=== PATIENT | male | born 1990 | race Caucasian/White ===

== ENCOUNTER 2018-06-21 19:15 | Emergency (ER) | payer SELFPAY, OTHER | END 2018-06-21 20:33 | disposition home or self-care (01) | LOC: ER 19:15 ==

== ENCOUNTER 2018-06-23 22:30 | Emergency (ER) | payer SELFPAY ==
[~2018-06-23] VITALS: Ht 182.9 cm; Wt 68.0 kg
[~2018-06-23 22:30] MED LIST: MPR22T TP; SULF1TAB38 PO
[2018-06-23 23:07] VITALS: BP 138/67
--- NOTE | 2018-06-24 09:09 | ED General ---
General Chief Complaint: -Male Stated Complaint: WANTS TO BE CHECKED FOR STDS Nursing Triage Note: pt presents to ed requesting STD testing. reports his girl friend tested positive for chlamydia. pt denies any s/s Nursing Sepsis Screen: No Definite Risk Source of Information: Patient History of Present Illness Date Seen by Provider: Jun 24, 2018 Time Seen by Provider: 00:20 Initial Comments PT ARRIVES VIA POV PT STATES "I THINK I HAVE CHLAMYDIA" PT STATES HIS GIRLFRIEND JUST CALLED HIM FROM THE REHAB FACILITY THAT SHE IS CURRENTLY IN, AND TOLD HIM THAT SHE HAD CHLAMYDIA, SO PT CAME STRAIGHT HERE PT HAS NO COMPLAINTS OF ANY KIND. NO DYSURIA, NO DISCHARGE FROM PENIS, NO GENITAL PAIN, NO FEVER. NO RASH PT DENIES ANY HISTORY OF STD'S AFTER DISCUSSION WITH PT, HE NOW DECLINES ANY TESTING HERE, AND OPTS TO FOLLOW UP WITH [facility] OR [facility] FOR TESTING AND TREATMENT, IF NECESSARY. PT LEFT, WITHOUT INSTRUCTIONS. PCP:[facility] Allergies and Home Medications Allergies Coded Allergies: No Known Drug Allergies (Unverified , 01/11/13) Home Medications No Active Prescriptions or Reported Meds Patient Home Medication List Home Medication List Reviewed: Yes Review of Systems Review of Systems Constitutional: no symptoms reported EENTM: no symptoms reported; No throat pain Respiratory: no symptoms reported Cardiovascular: no symptoms reported Gastrointestinal: no symptoms reported; No abdominal pain, No nausea, No vomiting Genitourinary: no symptoms reported Musculoskeletal: no symptoms reported; No joint pain, No muscle pain Skin: no symptoms reported; No rash Psychiatric/Neurological: No Symptoms Reported Hematologic/Lymphatic: No Symptoms Reported Immunological/Allergic: no symptoms reported Past Ouottyc-Qctdtd-Hvqijl Hx Patient Social History Alcohol Use: Occasionally Uses Recreational Drug Use: Yes (THC) Drug of Choice: THC Smoking Status: Former Smoker Former Smoker, Quit: Jun 02, 2018 Recent Foreign Travel: No Contact w/Someone Who Travel: No Recent Infectious Disease Expo: No Recent Hopitalizations: No Immunizations Up To Date Tetanus Booster (TDap): Unknown Past Medical History Surgeries: Yes (HERNIA REPAIR) Abdominal Respiratory: No Cardiac: No Neurological: No Genitourinary: No Gastrointestinal: No Musculoskeletal: No Endocrine: No HEENT: No Cancer: No Psychosocial: No Integumentary: No Blood Disorders: No Physical Exam Vital Signs Vital Signs - First Documented 06/23/18 23:07 Temp 98.0 Pulse 77 Resp 20 B/P (MAP) 138/67 (90) Pulse Ox 98 Capillary Refill : Less Than 3 Seconds Height, Weight, BMI Height: 6'1.00" Weight: 150lbs. 4.8oz. [id number]; 20.8 BMI Method:Stated General Appearance: No Apparent Distress, Thin Neurologic/Psychiatric: Alert, Oriented x3 Skin: Normal Color Progress/Results/Core Measures Suspected Sepsis Recent Fever Within 48 Hours: No Infection Criteria Present: None New/Unexplained Altered Menta: No Sepsis Screen: No Definite Risk SIRS Temperature:98.0 Pulse: 77 Respiratory Rate: 20 Blood Pressure 138 /67 Mean: 90 Results/Orders Vital Signs/I&O 06/23/18 23:07 Temp 98.0 Pulse 77 Resp 20 B/P (MAP) 138/67 (90) Pulse Ox 98 Capillary Refill : Less Than 3 Seconds Blood Pressure Mean: 90 Departure Impression Primary Impression: Exposure to STD Disposition: 07 AGAINST MEDICAL ADVICE Condition: Improved Departure-Patient Inst. Referrals: [facility] Patient Instructions: STD Prevention, Screening for Sexually Transmitted Infections Scripts No Active Prescriptions or Reported Meds MARISOL MORALES DO Jun 24, 2018 09:09
== END 2018-06-24 00:30 | disposition left against medical advice (07) ==
LOC: EDUNIT# 22:30 → ER 22:31
DX: Z20.2 Contact with and (suspected) exposure to infections with a predominantly sexual mode of transmission (principal); F12.10 Cannabis abuse, uncomplicated; Z87.891 Personal history of nicotine dependence; Z98.890 Other specified postprocedural states
CPT/HCPCS: 99283

== ENCOUNTER 2018-10-03 18:40 | Emergency (ER) | payer SELFPAY ==
[~2018-10-03] VITALS: Ht 185.4 cm; Wt 68.2 kg
--- NOTE | 2018-10-03 18:53 | ED Integumentary General ---
General Stated Complaint: KNOT ON STOMACH Source: patient Exam Limitations: no limitations History of Present Illness Date Seen by Provider: October 03, 2018 Time Seen by Provider: 18:40 Initial Comments Patient presents by private conveyance with chief complaint of knot on the front of his abdomen and his belt line. He does wear a belt. He says when he went to bed last night after work nothing was there but this morning and noticed a little red lump it's gotten larger and it hurts. He has no history of abscesses or folliculitis. No skin disorders or history of medical problems. He does not take any medications. He is not tried anything for it. He says it does not hurt bad enough that he wants anything for. Allergies and Home Medications Allergies Coded Allergies: No Known Drug Allergies (Unverified , 01/11/13) Home Medications No Active Prescriptions or Reported Meds Patient Home Medication List Home Medication List Reviewed: Yes Review of Systems Review of Systems Constitutional: chills; No fever, No malaise EENTM: No ear discharge, No hearing loss, No ear pain Respiratory: No cough, No short of breath Cardiovascular: No chest pain, No edema Gastrointestinal: No abdominal pain, No nausea, No vomiting Genitourinary: No discharge, No dysuria Past Rcasxjb-Qutwmf-Akvfhk Hx Patient Social History Alcohol Use: Occasionally Uses Recreational Drug Use: No Drug of Choice: THC Smoking Status: Current Someday Smoker Type Used: Cigarettes Former Smoker, Quit: Jun 02, 2018 Recent Foreign Travel: No Contact w/Someone Who Travel: No Recent Hopitalizations: No Immunizations Up To Date Tetanus Booster (TDap): Unknown Past Medical History Surgeries: Yes (HERNIA REPAIR) Abdominal Respiratory: No Cardiac: No Neurological: No Genitourinary: No Gastrointestinal: No Musculoskeletal: No Endocrine: No HEENT: No Cancer: No Psychosocial: No Integumentary: No Blood Disorders: No Physical Exam Vital Signs Capillary Refill : General Appearance: WD/WN, no apparent distress HEENT: normal ENT inspection, pharynx normal Cardiovascular: normal peripheral pulses, regular rate, rhythm Respiratory: no respiratory distress, no accessory muscle use Gastrointestinal: normal bowel sounds, non tender Extremities: normal range of motion, non-tender, normal capillary refill Neurologic/Psychiatric: alert, oriented x 3 Skin Problem Location: other (ventral line 5 cm below the umbilicus) Procedures/Interventions I&D : Site: anterior abdomen 5 cm inferior to the umbilicus Blade Size: 11 I & D Procedure: betadine prep, sterile drapes applied Progress Small amount of sinus drainage but no purulence could be found. Cotton-tipped applicator was used to explore the wound. Patient tolerated the procedure well. Gauze dressing was applied with tape. Progress/Results/Core Measures Results/Orders My Orders Orders - DIANDRA MALIK Lidocaine 1% Inj 20 Ml (Xylocaine 1% Inj (10/03/18 19:00) Progress Progress Note : Time: 18:51 Progress Note . Colitis versus possible small abscess. We will put some lidocaine and lanced. Place the patient on Bactrim. Departure Impression Primary Impression: Abscess Disposition: HOME, SELF-CARE Condition: Stable Departure-Patient Inst. Decision time for Depature: 18:59 Referrals: NO,LOCAL PHYSICIAN (PCP/Family) Primary Care Physician Patient Instructions: Abscess Incision and Drainage (DC) Add. Discharge Instructions: Just keep the area clean and wash it with regular soap and water only. Do not plug the wound. You may use a small Band-Aid to help collect the drainage and it will heal on its own over the next day or 2. Tylenol, Motrin and warm compresses for discomfort. support director the Bactrim and take one capsule twice a day for the next 3 days. Return to the doctor if it recurs or gets worse. Scripts Sulfamethoxazole/Trimethoprim (Bactrim Ds Tablet) 1 Each Tablet 1 EACH PO BID for 3 Days, #6 TAB 0 Refills Prov: DIANDRA MALIK 10/03/18 DIANDRA MALIK October 03, 2018 18:53
[2018-10-03] MEDS ORDERED: SULF1TAB35 PO (18:59)
[2018-10-03] MEDS ORDERED: LIDOCAINE 1% INJ 20 ML 20 ML VIAL INJ ONE (19:00)
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
[2018-10-03 19:04] VITALS: BP 126/78
== END 2018-10-03 19:03 | disposition home or self-care (01) ==
LOC: ER 18:40 → EDUNIT# 18:40 → ER 19:03
DX: L02.211 Cutaneous abscess of abdominal wall (principal); Z87.891 Personal history of nicotine dependence; Z98.890 Other specified postprocedural states
CPT/HCPCS: 99282